=== PATIENT | female | born 1995 | race Hispanic/Latino ===

== ENCOUNTER 2020-12-27 23:17 | Emergency (ER) | payer OTHER | END 2020-12-28 01:40 | disposition home or self-care (01) | LOC: CSHERS 23:17 | DX: R07.89 Other chest pain (principal); J45.909 Unspecified asthma, uncomplicated | CPT/HCPCS: 71045; 93005 ==

== ENCOUNTER 2021-10-11 18:45 | Emergency (ER) | payer MEDICAID, OTHER ==
[2021-10-11] MEDS ORDERED: Ketorolac Tromethamine 30 MG/ML VIAL ONE (19:59)
[2021-10-11] MEDS ORDERED: Cyclobenzaprine 10 MG TAB ONE (19:59)
== END 2021-10-11 20:01 | disposition home or self-care (01) ==
LOC: CSHERS 18:45
DX: S39.012A Strain of muscle, fascia and tendon of lower back, initial encounter (principal); J45.909 Unspecified asthma, uncomplicated; X58.XXXA Exposure to other specified factors, initial encounter
CPT/HCPCS: 96372; 99283; J1885

== ENCOUNTER 2022-03-30 19:46 | Emergency (ER) | payer OTHER | END 2022-03-30 21:04 | disposition home or self-care (01) | LOC: CSHERS 19:46 | DX: G56.01 Carpal tunnel syndrome, right upper limb (principal) | CPT/HCPCS: 99283 ==

== ENCOUNTER 2023-08-03 03:44 | Emergency (ER) | payer MEDICAID, OTHER, SELFPAY ==
[2023-08-03] MEDS ORDERED: Ketorolac Tromethamine 30 MG/ML VIAL ONE (04:25)
== END 2023-08-03 04:48 | disposition home or self-care (01) ==
LOC: CSHERS 03:44
DX: S92.352A Displaced fracture of fifth metatarsal bone, left foot, initial encounter for closed fracture (principal); S92.345A Nondisplaced fracture of fourth metatarsal bone, left foot, initial encounter for closed fracture; W18.30XA Fall on same level, unspecified, initial encounter
CPT/HCPCS: 29515; 96372; J1885

== ENCOUNTER 2024-02-01 18:37 | Emergency (ER) | payer SELFPAY | END 2024-02-01 19:25 | disposition left against medical advice (07) | LOC: CSHERS 18:37 | DX: Z53.21 Procedure and treatment not carried out due to patient leaving prior to being seen by health care provider (principal) ==

== ENCOUNTER 2024-02-10 11:56 | Emergency (ER) | payer SELFPAY | END 2024-02-10 13:40 | disposition home or self-care (01) | LOC: CSHERS 11:56 | DX: S92.352A Displaced fracture of fifth metatarsal bone, left foot, initial encounter for closed fracture (principal); X50.1XXA Overexertion from prolonged static or awkward postures, initial encounter ==

== ENCOUNTER 2024-05-17 18:37 | Inpatient (IN) | payer SELFPAY ==
[2024-05-17 19:32] LABS: #Basophils 0.04 10x3/uL (0.0-0.2); #Eosinophils 0.39 10x3/uL (0.0-0.5); #Monocytes 1.01 10x3/uL (0.0-1.1); #Neutrophils 14.54 10x3/uL (1.5-8.4); %Basophils 0.2 % (0.0-2.0); %Eosinophils 2.2 % (0.0-6.0); %Lymphocytes 8.2 % (18.0-47.0); %Monocytes 5.8 % (0.0-10.0); %Neutrophils 83.2 % (40.0-75.0); Hematocrit 40.1 % (34.9-44.5); Hemoglobin 12.9 g/dL (12.0-15.5); Mean Corpuscular HGB CONC 32.2 g/dL (32.0-36.0); Mean Corpuscular Hemoglobin 26.9 pg (27.0-33.0); Mean Corpuscular Volume 83.7 fL (81.6-98.3); Mean Platelet Volume 11.1 fL (7.4-10.4); Platelet Count 313 10x3/uL (150-450); RBC Distribution Width 13.6 % (11.5-14.5); Red Blood Cell (RBC) Count 4.79 10x6/uL (3.90-5.03); White Blood Cell (WBC) Count 17.5 10x3/uL (3.5-10.5)
[2024-05-17 19:45] LABS: ALT (SGPT) 16 U/L (8-55); AST (SGOT) 15 U/L (5-34); Albumin 3.4 g/dL (3.5-5.0); Alkaline Phosphatase 132 U/L (40-110); Anion Gap 15 mmol/L (10-20); BUN (Urea Nitrogen) 12 mg/dL (7.0-18.7); Bilirubin, Total 0.4 mg/dL (0.2-1.2); Calc. Creatinine Clearance 0 mL/min (70-130); Calcium 8.9 mg/dL (7.8-10.44); Carbon Dioxide 23 mmol/L (22-29); Chloride 104 mmol/L (98-107); Estimated GFR 112; Globulin 3.8 g/dL (2.4-3.5); Glucose 151 mg/dL (70-105); Potassium 3.5 mmol/L (3.5-5.1); Protein, Total 7.2 g/dL (6.0-8.3); Sodium 138 mmol/L (136-145)
[2024-05-17] MEDS ORDERED: Ondansetron PF 4 MG/2 ML Vial ONE (19:46)
[2024-05-17] MEDS ORDERED: Morphine 4 MG/ML VIAL ONE (19:46)
[2024-05-17 19:51] LABS: Troponin I Less than 0.010 ng/mL (< 0.028)
[2024-05-17] MEDS ORDERED: Cefepime 2 GM VIAL ONE (19:57)
[2024-05-17 20:07] LABS: BHCG - Serum Negative (NEGATIVE); Pregs Control Background? CLEAR/WHITE (CLR/WHITE); Pregs Control Bar Appear? YES (CONTROL BAR)
[2024-05-17 20:09] LABS: Lipase 36 U/L (8-78)
[2024-05-17 22:22] LABS: Bilirubin Neg (Negative); Blood, Urine Negative (Negative); Clarity Clear (Clear); Glucose, Urine (Dipstick) Normal (Negative); Ketone, Urine Negative (Negative); Leukocyte Negative (Negative); Nitrite Negative (Negative); Protein, Urine (Dipstick) 15 mg/dl (Neg-Trace); Specific Gravity, Urine 1.005 (1.005-1.030)
[2024-05-17 22:52] LABS: CAUTI Indications for Culture Pelvic or flank pain; RBC/HPF 0-3 HPF (0-3)
[2024-05-17 22:53] LABS: Bacteria/HPF 1+ HPF (None Seen); Mucous/LPF 1+ LPF (<2+)
[2024-05-17 22:56] LABS: Urine Culture Reflex No No
[2024-05-17 23:46] LABS: Magnesium 1.9 mg/dL (1.6-2.6)
[2024-05-17 23:53] LABS: Troponin I Less than 0.010 ng/mL (< 0.028)
[2024-05-18] MEDS: Aspirin Chewable 81 MG TAB PO SCH (03:27)
[2024-05-18] MEDS: Ketorolac Tromethamine 30 MG (1 mL) VIAL IVP SCH (03:27)
[2024-05-18] MEDS: diphenhydrAMINE 50 MG/ML VIAL IVP SCH (03:27)
[2024-05-18] MEDS: NS 0.9% w/ 20 MEQ KCL 1,000 ML/1,000 ML BAG IV SCH ×2 (03:28→20:01)
[2024-05-18 03:36] VITALS: BMI 41.9
[2024-05-18 05:14] LABS: Anion Gap 13 mmol/L (10-20); BUN (Urea Nitrogen) 7 mg/dL (7.0-18.7); Calc. Creatinine Clearance 260 mL/min (70-130); Calcium 7.7 mg/dL (7.8-10.44); Carbon Dioxide 19 mmol/L (22-29); Chloride 113 mmol/L (98-107); Estimated GFR 124; Glucose 85 mg/dL (70-105); Potassium 3.5 mmol/L (3.5-5.1); Sodium 141 mmol/L (136-145); Vancomycin, Trough 20.5 ug/mL
[2024-05-18 05:17] LABS: #Basophils 0.02 10x3/uL (0.0-0.2); #Eosinophils 0.35 10x3/uL (0.0-0.5); #Monocytes 0.55 10x3/uL (0.0-1.1); #Neutrophils 6.03 10x3/uL (1.5-8.4); %Basophils 0.2 % (0.0-2.0); %Lymphocytes 20.2 % (18.0-47.0); %Monocytes 6.3 % (0.0-10.0); Hematocrit 37.1 % (34.9-44.5); Hemoglobin 11.5 g/dL (12.0-15.5); Mean Corpuscular Hemoglobin 26.6 pg (27.0-33.0); Mean Corpuscular Volume 85.7 fL (81.6-98.3); Mean Platelet Volume 11.1 fL (7.4-10.4); Platelet Count 241 10x3/uL (150-450); Red Blood Cell (RBC) Count 4.33 10x6/uL (3.90-5.03); White Blood Cell (WBC) Count 8.8 10x3/uL (3.5-10.5)
[2024-05-18] MEDS ORDERED: VANCOMYCIN 2 GRAM/400 ML BAG IVPB SCH (09:00)
[2024-05-18] MEDS: Acetaminophen 325 MG TAB PO PRN (09:57)
[2024-05-18] MEDS: Enoxaparin 40 MG (0.4 mL) SYRINGE SC SCH (09:58)
[2024-05-18] MEDS: Aspirin 81 mg Enteric Coated Tablet PO SCH (09:58)
[2024-05-18] MEDS: Cefepime 2 GM in Sodium Chloride 0.9% 100 ML IVPB SCH (09:58)
[2024-05-18] MEDS: VANCOMYCIN 2 GRAM/400 ML BAG 2 GM in Premix 1 BAG IVPB SCH (09:59)
[2024-05-18] MEDS: Aspirin/APAP/Caffeine Tab (Excedrin Migraine) PO PRN (16:01)
[2024-05-18] MEDS: Vancomycin 1 GM in Sodium Chloride 0.9% 250 ML 250 ML IVPB SCH (21:51)
[2024-05-19 06:23] LABS: #Basophils 0.04 10x3/uL (0.0-0.2); #Eosinophils 0.63 10x3/uL (0.0-0.5); #Monocytes 0.57 10x3/uL (0.0-1.1); %Basophils 0.5 % (0.0-2.0); %Eosinophils 7.5 % (0.0-6.0); %Lymphocytes 32.1 % (18.0-47.0); %Monocytes 6.8 % (0.0-10.0); %Neutrophils 52.7 % (40.0-75.0); Hematocrit 38.5 % (34.9-44.5); Hemoglobin 12.2 g/dL (12.0-15.5); Mean Corpuscular HGB CONC 31.7 g/dL (32.0-36.0); Mean Corpuscular Volume 85.2 fL (81.6-98.3); Mean Platelet Volume 11.1 fL (7.4-10.4); Platelet Count 303 10x3/uL (150-450); RBC Distribution Width 13.7 % (11.5-14.5); Red Blood Cell (RBC) Count 4.52 10x6/uL (3.90-5.03); White Blood Cell (WBC) Count 8.4 10x3/uL (3.5-10.5)
[2024-05-19 06:30] LABS: Anion Gap 14 mmol/L (10-20); BUN (Urea Nitrogen) 7 mg/dL (7.0-18.7); Calc. Creatinine Clearance 239 mL/min (70-130); Calcium 8.3 mg/dL (7.8-10.44); Carbon Dioxide 21 mmol/L (22-29); Chloride 110 mmol/L (98-107); Estimated GFR 122; Glucose 78 mg/dL (70-105); Sodium 141 mmol/L (136-145)
[2024-05-19 12:45] LABS: Amphetamine Not Detected (NotDetected); Barbiturates Screen Not Detected (NotDetected); Benzodiazepine Screen Not Detected (NotDetected); Cocaine Metabolite Screen Detected (NotDetected); Methadone Not Detected (NotDetected); Methamphetamine Not Detected (NotDetected); Opiate Screen Not Detected (NotDetected); Oxycodone Screen Not Detected (NotDetected); Phencyclidine (PCP) Not Detected (NotDetected); THC/Cannabinoid Screen Not Detected (NotDetected); Tricyclic Screen Not Detected (NotDetected)
[2024-05-19] MEDS ORDERED: Magnevist 469MG/ML 20 ML VIAL ONE (15:28)
[2024-05-19] MEDS: Ketorolac Tromethamine 30 MG (1 mL) VIAL IVP PRN (22:01)
[2024-05-20 06:15] LABS: #Basophils 0.07 10x3/uL (0.0-0.2); #Monocytes 0.59 10x3/uL (0.0-1.1); #Neutrophils 4.46 10x3/uL (1.5-8.4); %Basophils 0.9 % (0.0-2.0); %Eosinophils 7.4 % (0.0-6.0); %Lymphocytes 29.7 % (18.0-47.0); %Monocytes 7.2 % (0.0-10.0); %Neutrophils 54.6 % (40.0-75.0); Hematocrit 39.3 % (34.9-44.5); Hemoglobin 12.7 g/dL (12.0-15.5); Mean Corpuscular HGB CONC 32.3 g/dL (32.0-36.0); Mean Corpuscular Hemoglobin 27.1 pg (27.0-33.0); Platelet Count 321 10x3/uL (150-450); RBC Distribution Width 13.8 % (11.5-14.5); Red Blood Cell (RBC) Count 4.68 10x6/uL (3.90-5.03); White Blood Cell (WBC) Count 8.2 10x3/uL (3.5-10.5)
[2024-05-20 06:30] LABS: ALT (SGPT) 12 U/L (8-55); AST (SGOT) 10 U/L (5-34); Albumin 2.6 g/dL (3.5-5.0); Alkaline Phosphatase 94 U/L (40-110); Anion Gap 14 mmol/L (10-20); BUN (Urea Nitrogen) 10 mg/dL (7.0-18.7); Bilirubin, Direct 0.1 mg/dL (0.1-0.3); Bilirubin, Total 0.2 mg/dL (0.2-1.2); Calc. Creatinine Clearance 199 mL/min (70-130); Calcium 8.6 mg/dL (7.8-10.44); Carbon Dioxide 24 mmol/L (22-29); Chloride 106 mmol/L (98-107); Estimated GFR 106; Glucose 93 mg/dL (70-105); Potassium 4.1 mmol/L (3.5-5.1); Protein, Total 5.9 g/dL (6.0-8.3); Sodium 140 mmol/L (136-145)
[2024-05-20 06:33] LABS: Vancomycin, Random 12.7 ug/mL (See Comment)
[2024-05-20] MEDS: cefTRIAXone\\ROCEPHIN 2 GM in Sodium Chloride 0.9% 100 ML IVPB SCH (08:13)
[2024-05-21 05:54] LABS: #Basophils 0.04 10x3/uL (0.0-0.2); #Eosinophils 0.55 10x3/uL (0.0-0.5); #Monocytes 0.52 10x3/uL (0.0-1.1); #Neutrophils 6.29 10x3/uL (1.5-8.4); %Basophils 0.4 % (0.0-2.0); %Eosinophils 5.6 % (0.0-6.0); %Lymphocytes 24.2 % (18.0-47.0); %Monocytes 5.3 % (0.0-10.0); %Neutrophils 64.2 % (40.0-75.0); Hematocrit 40.1 % (34.9-44.5); Hemoglobin 12.6 g/dL (12.0-15.5); Mean Corpuscular HGB CONC 31.4 g/dL (32.0-36.0); Mean Corpuscular Hemoglobin 26.4 pg (27.0-33.0); Mean Corpuscular Volume 84.1 fL (81.6-98.3); Mean Platelet Volume 10.9 fL (7.4-10.4); Platelet Count 315 10x3/uL (150-450); RBC Distribution Width 13.7 % (11.5-14.5); Red Blood Cell (RBC) Count 4.77 10x6/uL (3.90-5.03); White Blood Cell (WBC) Count 9.8 10x3/uL (3.5-10.5)
[2024-05-21 06:07] LABS: Anion Gap 15 mmol/L (10-20); BUN (Urea Nitrogen) 11 mg/dL (7.0-18.7); Calc. Creatinine Clearance 243 mL/min (70-130); Calcium 8.5 mg/dL (7.8-10.44); Carbon Dioxide 22 mmol/L (22-29); Chloride 107 mmol/L (98-107); Estimated GFR 122; Glucose 82 mg/dL (70-105); Potassium 3.9 mmol/L (3.5-5.1); Sodium 140 mmol/L (136-145); Vancomycin, Random 11.6 ug/mL (See Comment)
[2024-05-21 06:32] LABS: HIV (1/2) Antibody/Antigen Non-Reactive (NonReactive); HIV 1/2 INDEX 0.08 S/CO (<1.00)
[2024-05-21] MEDS: Vancomycin HCl 500 MG in Sodium Chloride 0.9% 100 ML IVPB SCH (07:34)
[2024-05-21 09:03] LABS: INR-International Normal Ratio 0.9; Prothrombin Time 10.1 sec (9.5-12.1)
[2024-05-21] MEDS: Promethazine HCl 12.5 MG, Admixture Fee 1 EACH in Sodium Chloride 0.9% 50 ML IVPB SCH (10:29)
[2024-05-21 10:57] LABS: CSF, Glucose 56 mg/dl (40-70); CSF, Protein 19.6 mg/dL (15-40)
[2024-05-21 11:02] LABS: Color Of CSF Supernatant COLORLESS (Colorless); Unspun CSF Color COLORLESS (Colorless)
[2024-05-21 11:03] LABS: Tube # 1
[2024-05-21 11:35] LABS: CSF Source CSF; Clarity Clear (Clear); Tube # 2
[2024-05-21 11:37] LABS: CSF WBC/NonHematics Count-Man 8 /cu.mm (0-5)
[2024-05-21 11:38] LABS: CSF RBC Count - Manual 7 /cu.mm (None Seen)
[2024-05-21] MEDS: Vancomycin 1.5 GRAM/300 ML BAG 1.5 GM in Premix 1 BAG IVPB SCH (14:04)
[2024-05-21] MEDS: Vancomycin 1.5 GRAM/300 ML BAG ONE (21:57)
[2024-05-22 04:15] LABS: #Basophils 0.07 10x3/uL (0.0-0.2); #Eosinophils 0.57 10x3/uL (0.0-0.5); #Monocytes 0.61 10x3/uL (0.0-1.1); #Neutrophils 5.19 10x3/uL (1.5-8.4); %Basophils 0.8 % (0.0-2.0); %Eosinophils 6.1 % (0.0-6.0); %Lymphocytes 30.5 % (18.0-47.0); %Monocytes 6.5 % (0.0-10.0); %Neutrophils 55.7 % (40.0-75.0); Hematocrit 38.2 % (34.9-44.5); Hemoglobin 12.2 g/dL (12.0-15.5); Mean Corpuscular HGB CONC 31.9 g/dL (32.0-36.0); Mean Corpuscular Hemoglobin 27.4 pg (27.0-33.0); Mean Corpuscular Volume 85.8 fL (81.6-98.3); Mean Platelet Volume 10.6 fL (7.4-10.4); Platelet Count 325 10x3/uL (150-450); RBC Distribution Width 14.1 % (11.5-14.5); Red Blood Cell (RBC) Count 4.45 10x6/uL (3.90-5.03); White Blood Cell (WBC) Count 9.3 10x3/uL (3.5-10.5)
[2024-05-22 04:31] LABS: Anion Gap 13 mmol/L (10-20); BUN (Urea Nitrogen) 18 mg/dL (7.0-18.7); Calc. Creatinine Clearance 219 mL/min (70-130); Calcium 8.2 mg/dL (7.8-10.44); Carbon Dioxide 19 mmol/L (22-29); Chloride 110 mmol/L (98-107); Estimated GFR 119; Glucose 97 mg/dL (70-105); Magnesium 1.9 mg/dL (1.6-2.6); Sodium 138 mmol/L (136-145); Vancomycin, Random 25.4 ug/mL (See Comment)
[2024-05-22] MEDS: Pantoprazole DR 40 MG TAB PO SCH (09:37)
[2024-05-22] MEDS: Ketorolac Tromethamine 30 MG (1 mL) VIAL IVP SCH (09:37)
[2024-05-22] MEDS: Valproic Acid 250 mg/5 ml UD Cup PO SCH (10:06)
[2024-05-22] MEDS: Dexamethasone 4 MG in Sodium Chloride 0.9% 50 ML IVPB SCH (12:28)
[2024-05-22] MEDS: Magnesium Sulfate/D5W 1 GM in Premix 1 BAG IVPB SCH (12:29)
[2024-05-22] MEDS: Dexamethasone 4 mg/ml Vial SLOW IVP SCH (13:01)
[2024-05-22 13:02] VITALS: BP 112/69; TEMP 98.3
[2024-05-23] MEDS ORDERED: Pantoprazole DR 40 MG TAB PO SCH (09:00)
== END 2024-05-22 15:15 | disposition home or self-care (01) | DRG 918 ==
LOC: CSHERS 18:37 → CSHTELE 23:19 → OBSVTOIN 23:19 → CSHTELE 05-18 02:21
PROVIDERS: ADMIT Family Medicine; ATTEND Family Medicine
PROC: 009U3ZZ Drainage of Spinal Canal, Percutaneous Approach (ICD-10-PCS; principal; 2024-05-21)
PROC: B01BZZZ Fluoroscopy of Spinal Cord (ICD-10-PCS; 2024-05-21)
DX: T40.5X1A Poisoning by cocaine, accidental (unintentional), initial encounter (principal); R65.10 Systemic inflammatory response syndrome (SIRS) of non-infectious origin without acute organ dysfunction; Z68.41 Body mass index [BMI] 40.0-44.9, adult; F14.10 Cocaine abuse, uncomplicated; J45.909 Unspecified asthma, uncomplicated; E66.01 Morbid (severe) obesity due to excess calories; G93.0 Cerebral cysts; G43.109 Migraine with aura, not intractable, without status migrainosus; G97.1 Other reaction to spinal and lumbar puncture; D72.829 Elevated white blood cell count, unspecified; Z71.51 Drug abuse counseling and surveillance of drug abuser
CPT/HCPCS: 36415; 62270; 70450; 70553; 71275; 76376; 80048; 80053; 80076; 80202; 80306; 81001; 82945; 83605; 83690; 83735; 84145; 84157; 84484; 84703; 85025; 85610; 87040; 87070; 87205; 87389; 87428; 87529; 89051; 93005; 93010; 96361; 96365; 96366; 96368; 96372; 96374; 96375; 96376; G0378; J0692; J0696; J0780; J1100; J1200; J1650; J1885; J2272; J2405; J2550; J3370; J3475; J3480; J7030; J7050

== ENCOUNTER 2024-05-24 07:12 | Emergency (ER) | payer OTHER, SELFPAY ==
[2024-05-24] MEDS ORDERED: diphenhydrAMINE 50 MG/ML VIAL ONE (07:39)
[2024-05-24] MEDS ORDERED: Ketorolac Tromethamine 30 MG (1 mL) VIAL ONE (07:39)
[2024-05-24] MEDS ORDERED: Dexamethasone 10 MG/ML VIAL ONE (07:39)
[2024-05-24] MEDS ORDERED: Prochlorperazine 10 MG/2 ML VIAL ONE (07:39)
[2024-05-24 07:48] LABS: #Basophils 0.05 10x3/uL (0.0-0.2); #Eosinophils 0.33 10x3/uL (0.0-0.5); #Monocytes 0.71 10x3/uL (0.0-1.1); #Neutrophils 8.05 10x3/uL (1.5-8.4); %Basophils 0.4 % (0.0-2.0); %Eosinophils 2.9 % (0.0-6.0); %Lymphocytes 20.5 % (18.0-47.0); %Monocytes 6.2 % (0.0-10.0); %Neutrophils 69.7 % (40.0-75.0); Hematocrit 38.9 % (34.9-44.5); Hemoglobin 12.7 g/dL (12.0-15.5); Mean Corpuscular HGB CONC 32.6 g/dL (32.0-36.0); Mean Corpuscular Hemoglobin 27.3 pg (27.0-33.0); Mean Corpuscular Volume 83.5 fL (81.6-98.3); Mean Platelet Volume 10.5 fL (7.4-10.4); Platelet Count 328 10x3/uL (150-450); RBC Distribution Width 14.2 % (11.5-14.5); Red Blood Cell (RBC) Count 4.66 10x6/uL (3.90-5.03); White Blood Cell (WBC) Count 11.5 10x3/uL (3.5-10.5)
[2024-05-24 07:59] LABS: BHCG - Serum Negative (NEGATIVE); Pregs Control Background? CLEAR/WHITE (CLR/WHITE); Pregs Control Bar Appear? YES (CONTROL BAR)
[2024-05-24 08:07] LABS: ALT (SGPT) 25 U/L (8-55); AST (SGOT) 12 U/L (5-34); Albumin 3.3 g/dL (3.5-5.0); Alkaline Phosphatase 105 U/L (40-110); Anion Gap 16 mmol/L (10-20); BUN (Urea Nitrogen) 10 mg/dL (7.0-18.7); Bilirubin, Total 0.3 mg/dL (0.2-1.2); Calc. Creatinine Clearance 0 mL/min (70-130); Calcium 8.9 mg/dL (7.8-10.44); Carbon Dioxide 23 mmol/L (22-29); Chloride 106 mmol/L (98-107); Estimated GFR 112; Globulin 3.8 g/dL (2.4-3.5); Glucose 86 mg/dL (70-105); Potassium 3.9 mmol/L (3.5-5.1); Protein, Total 7.1 g/dL (6.0-8.3); Sodium 141 mmol/L (136-145)
== END 2024-05-24 09:00 | disposition home or self-care (01) ==
LOC: CSHERS 07:12
DX: R51.9 Headache, unspecified (principal)
CPT/HCPCS: 36416; 80053; 84703; 85025; 96374; 96375; J0780; J1100; J1200; J1885

== ENCOUNTER 2024-06-15 04:16 | Emergency (ER) | payer SELFPAY ==
[2024-06-15] MEDS ORDERED: diphenhydrAMINE 50 MG/ML VIAL ONE (04:28)
[2024-06-15] MEDS ORDERED: Metoclopramide HCl 10 MG (2 mL) VIAL ONE (04:28)
[2024-06-15] MEDS ORDERED: Ketorolac Tromethamine 30 MG (1 mL) VIAL ONE (04:28)
[2024-06-15] MEDS ORDERED: methylPREDNISolone Sod Succ/PF 125 MG/2 ML VIAL ONE (06:29)
[2024-06-15] MEDS ORDERED: Magnesium 2 GM/50 ML BAG (IN WATER) ONE (06:29)
== END 2024-06-15 09:28 | disposition home or self-care (01) ==
LOC: CSHERS 04:16
DX: G43.909 Migraine, unspecified, not intractable, without status migrainosus (principal)
CPT/HCPCS: 96374; 96375; J1200; J1885; J2765; J2919; J3475

== ENCOUNTER 2024-09-26 13:04 | Emergency (ER) | payer SELFPAY ==
[2024-09-26] MEDS ORDERED: Acetaminophen 500 MG TAB ONE (14:00)
[2024-09-26 14:11] LABS: #Basophils 0.05 10x3/uL (0.0-0.2); #Eosinophils 0.39 10x3/uL (0.0-0.5); #Monocytes 0.47 10x3/uL (0.0-1.1); #Neutrophils 6.75 10x3/uL (1.5-8.4); %Basophils 0.5 % (0.0-2.0); %Eosinophils 3.9 % (0.0-6.0); %Lymphocytes 23.9 % (18.0-47.0); %Monocytes 4.6 % (0.0-10.0); %Neutrophils 66.7 % (40.0-75.0); Hematocrit 37.2 % (34.9-44.5); Hemoglobin 11.9 g/dL (12.0-15.5); Mean Corpuscular Hemoglobin 25.9 pg (27.0-33.0); Mean Corpuscular Volume 80.9 fL (81.6-98.3); Mean Platelet Volume 11.1 fL (7.4-10.4); Platelet Count 289 10x3/uL (150-450); RBC Distribution Width 14.2 % (11.5-14.5); White Blood Cell (WBC) Count 10.12 10x3/uL (3.5-10.5)
[2024-09-26 14:12] LABS: Bilirubin Neg (Negative); Blood, Urine Negative (Negative); Clarity Clear (Clear); Glucose, Urine (Dipstick) Normal (Negative); Ketone, Urine Negative (Negative); Leukocyte 100 (Negative); Nitrite Negative (Negative); Protein, Urine (Dipstick) Negative (Neg-Trace); Specific Gravity, Urine 1.005 (1.005-1.030); Urobilinogen Normal mg/dL (Less than 2)
[2024-09-26 14:28] LABS: ALT (SGPT) 10 U/L (Less than 34); AST (SGOT) 12 U/L (11-34); Albumin 3.3 g/dL (3.1-4.5); Alkaline Phosphatase 97 U/L (40-110); Anion Gap 12 mmol/L (10-20); BUN (Urea Nitrogen) 5 mg/dL (7.0-18.7); Bilirubin, Total 0.2 mg/dL (0.3-1.2); Calc. Creatinine Clearance 0 mL/min (70-130); Calcium 8.7 mg/dL (7.8-10.44); Carbon Dioxide 21 mmol/L (22-29); Chloride 106 mmol/L (98-107); Estimated GFR 127; Globulin 4.1 g/dL (2.4-3.5); Glucose 88 mg/dL (70-105); Lipase 37 U/L (8-78); Potassium 3.8 mmol/L (3.5-5.1); Protein, Total 7.4 g/dL (6.0-8.3); Sodium 135 mmol/L (136-145)
[2024-09-26 14:34] LABS: Bacteria/HPF None Seen HPF (None Seen); CAUTI Indications for Culture Pelvic or flank pain; RBC/HPF None Seen HPF (0-3); Squamous Epithelial 0-3 HPF (0-3); Urine Culture Reflex No No; WBC/HPF 0-3 HPF (0-3)
== END 2024-09-26 15:46 | disposition home or self-care (01) ==
LOC: EEVIPCON 13:04 → CSHERS 13:04
DX: O20.9 Hemorrhage in early pregnancy, unspecified (principal); Z3A.10 10 weeks gestation of pregnancy
CPT/HCPCS: 36415; 76856; 80053; 81001; 83690; 83735; 84702; 85025; 86850; 86900; 86901

== ENCOUNTER 2025-04-11 14:04 | Emergency (ER) | payer SELFPAY ==
[2025-04-11 15:06] LABS: #Basophils 0.04 10x3/uL (0.0-0.2); #Eosinophils 0.26 10x3/uL (0.0-0.5); #Monocytes 0.47 10x3/uL (0.0-1.1); #Neutrophils 5.52 10x3/uL (1.5-8.4); %Basophils 0.5 % (0.0-2.0); %Eosinophils 3.3 % (0.0-6.0); %Lymphocytes 19.6 % (18.0-47.0); %Monocytes 6.0 % (0.0-10.0); %Neutrophils 70.3 % (40.0-75.0); Hematocrit 36.9 % (34.9-44.5); Hemoglobin 11.1 g/dL (12.0-15.5); Mean Corpuscular Hemoglobin 23.4 pg (27.0-33.0); Mean Corpuscular Volume 77.8 fL (81.6-98.3); Platelet Count 284 10x3/uL (150-450); Red Blood Cell (RBC) Count 4.74 10x6/uL (3.90-5.03); White Blood Cell (WBC) Count 7.85 10x3/uL (3.5-10.5)
[2025-04-11 15:42] LABS: ALT (SGPT) 16 U/L (Less than 34); AST (SGOT) 27 U/L (11-34); Albumin 3.4 g/dL (3.1-4.5); Alkaline Phosphatase 108 U/L (40-110); Anion Gap 12 mmol/L (10-20); BUN (Urea Nitrogen) 9 mg/dL (7.0-18.7); Bilirubin, Total 0.2 mg/dL (0.3-1.2); Calc. Creatinine Clearance 0 mL/min (70-130); Calcium 8.7 mg/dL (7.8-10.44); Carbon Dioxide 21 mmol/L (22-29); Chloride 108 mmol/L (98-107); Globulin 3.6 g/dL (2.4-3.5); Glucose 112 mg/dL (70-105); Potassium 4.0 mmol/L (3.5-5.1); Sodium 137 mmol/L (136-145)
== END 2025-04-11 18:00 | disposition home or self-care (01) ==
LOC: CSHERS 14:04
DX: O99.891 Other specified diseases and conditions complicating pregnancy (principal); R10.30 Lower abdominal pain, unspecified; M25.531 Pain in right wrist; O21.9 Vomiting of pregnancy, unspecified; O99.331 Smoking (tobacco) complicating pregnancy, first trimester; F17.290 Nicotine dependence, other tobacco product, uncomplicated; Z55.6 Problems related to health literacy; Z3A.00 Weeks of gestation of pregnancy not specified
CPT/HCPCS: 36415; 76856; 80053; 84702; 85025

== ENCOUNTER 2025-04-22 16:11 | Emergency (ER) | payer SELFPAY ==
[2025-04-22 17:58] LABS: Glucose, Urine (Dipstick) Normal (Negative); Leukocyte 500 (Negative); Protein, Urine (Dipstick) 15 mg/dl (Neg-Trace); Specific Gravity, Urine 1.010 (1.005-1.030)
[2025-04-22 18:25] LABS: CAUTI Indications for Culture Pregnancy; RBC/HPF None Seen HPF (0-3)
[2025-04-22 18:26] LABS: Bacteria/HPF 1+ HPF (None Seen); Urine Culture Reflex Yes Yes
[2025-04-22 19:01] LABS: #Basophils 0.05 10x3/uL (0.0-0.2); #Eosinophils 0.26 10x3/uL (0.0-0.5); #Monocytes 0.54 10x3/uL (0.0-1.1); #Neutrophils 7.33 10x3/uL (1.5-8.4); %Basophils 0.5 % (0.0-2.0); %Eosinophils 2.5 % (0.0-6.0); %Lymphocytes 19.8 % (18.0-47.0); %Monocytes 5.3 % (0.0-10.0); %Neutrophils 71.7 % (40.0-75.0); Hematocrit 37.5 % (34.9-44.5); Hemoglobin 11.7 g/dL (12.0-15.5); Mean Corpuscular Hemoglobin 23.7 pg (27.0-33.0); Mean Corpuscular Volume 76.1 fL (81.6-98.3); Platelet Count 318 10x3/uL (150-450); Red Blood Cell (RBC) Count 4.93 10x6/uL (3.90-5.03); White Blood Cell (WBC) Count 10.23 10x3/uL (3.5-10.5)
[2025-04-22 19:17] LABS: ALT (SGPT) 10 U/L (Less than 34); AST (SGOT) 25 U/L (11-34); Albumin 3.7 g/dL (3.1-4.5); Alkaline Phosphatase 108 U/L (40-110); Anion Gap 11 mmol/L (10-20); BUN (Urea Nitrogen) 9 mg/dL (7.0-18.7); Bilirubin, Total 0.2 mg/dL (0.3-1.2); Calc. Creatinine Clearance 0 mL/min (70-130); Calcium 9.5 mg/dL (7.8-10.44); Carbon Dioxide 25 mmol/L (22-29); Chloride 107 mmol/L (98-107); Globulin 3.9 g/dL (2.4-3.5); Glucose 83 mg/dL (70-105); Potassium 4.3 mmol/L (3.5-5.1); Sodium 139 mmol/L (136-145)
[2025-04-22] MEDS ORDERED: metroNIDAZOLE 500 MG TAB ONE (19:29)
[2025-04-22] MEDS ORDERED: Acetaminophen 500 MG TAB ONE (19:29)
[2025-04-23 01:00] LABS: Chlamydia by PCR, Vaginal Swab Not Detected (NotDetected); GC by PCR, Vaginal Swab Not Detected (NotDetected)
== END 2025-04-22 20:11 | disposition home or self-care (01) ==
LOC: CSHERS 16:11
DX: O20.0 Threatened abortion (principal); O20.8 Other hemorrhage in early pregnancy; O23.591 Infection of other part of genital tract in pregnancy, first trimester; B97.89 Other viral agents as the cause of diseases classified elsewhere; O23.91 Unspecified genitourinary tract infection in pregnancy, first trimester; R82.71 Bacteriuria; O99.331 Smoking (tobacco) complicating pregnancy, first trimester; F17.200 Nicotine dependence, unspecified, uncomplicated; Z3A.08 8 weeks gestation of pregnancy
CPT/HCPCS: 36415; 76801; 80053; 81001; 84702; 85025; 86900; 86901; 87086; 87480; 87491; 87510; 87591; 87660; 99284

== ENCOUNTER 2025-05-17 22:02 | Emergency (ER) | payer MEDICAID, OTHER ==
[2025-05-18 01:18] LABS: ALT (SGPT) 9 U/L (Less than 34); AST (SGOT) 23 U/L (11-34); Albumin 3.3 g/dL (3.1-4.5); Alkaline Phosphatase 99 U/L (40-110); Anion Gap 16 mmol/L (10-20); BUN (Urea Nitrogen) 6 mg/dL (7.0-18.7); Bilirubin, Total 0.2 mg/dL (0.3-1.2); Calc. Creatinine Clearance 0 mL/min (70-130); Calcium 8.7 mg/dL (7.8-10.44); Carbon Dioxide 17 mmol/L (22-29); Chloride 107 mmol/L (98-107); Globulin 3.7 g/dL (2.4-3.5); Glucose 88 mg/dL (70-105); Lipase 33 U/L (8-78); Potassium 3.1 mmol/L (3.5-5.1); Sodium 137 mmol/L (136-145)
[2025-05-18 01:39] LABS: Hematocrit 34.8 % (34.9-44.5); Hemoglobin 11.2 g/dL (12.0-15.5); Mean Corpuscular Hemoglobin 24.0 pg (27.0-33.0); Mean Corpuscular Volume 74.7 fL (81.6-98.3); Platelet Count 273 10x3/uL (150-450); Red Blood Cell (RBC) Count 4.66 10x6/uL (3.90-5.03); White Blood Cell (WBC) Count 13.08 10x3/uL (3.5-10.5)
[2025-05-18 01:46] LABS: BHCG - Serum POSITIVE (NEGATIVE); Pregs Control Background? CLEAR/WHITE (CLR/WHITE); Pregs Control Bar Appear? YES (CONTROL BAR)
[2025-05-18 02:08] LABS: Glucose, Urine (Dipstick) Normal (Negative); Leukocyte 500 (Negative); Protein, Urine (Dipstick) 30 mg/dl (Neg-Trace); Specific Gravity, Urine 1.030 (1.005-1.030)
[2025-05-18 02:10] LABS: Anisocytosis SLIGHT = 6-15 cells (100X) (0-5/hpf); Ovalocytes SLIGHT = 2-5 cells (100X) (0-1/hpf)
[2025-05-18 02:11] LABS: #Basophils 0.05 10x3/uL (0.0-0.2); #Eosinophils 0.17 10x3/uL (0.0-0.5); #Monocytes 0.79 10x3/uL (0.0-1.1); #Neutrophils 9.33 10x3/uL (1.5-8.4); %Basophils 0.4 % (0.0-2.0); %Eosinophils 1.3 % (0.0-6.0); %Lymphocytes 20.6 % (18.0-47.0); %Monocytes 6.0 % (0.0-10.0); %Neutrophils 71.3 % (40.0-75.0); Platelet Adequacy Comment Appears Adequate
[2025-05-18 02:21] LABS: Bacteria/HPF 1+ HPF (None Seen); CAUTI Indications for Culture Pregnancy; RBC/HPF 0-3 HPF (0-3); WBC/HPF 0-3 HPF (0-3)
[2025-05-18 02:24] LABS: Urine Culture Reflex Yes Yes
[2025-05-18] MEDS ORDERED: Acetaminophen 500 MG TAB ONE (02:24)
== END 2025-05-18 03:10 | disposition home or self-care (01) ==
LOC: EEVIPCON 22:02 → CSHERS 22:02
DX: O23.41 Unspecified infection of urinary tract in pregnancy, first trimester (principal); N39.0 Urinary tract infection, site not specified; O99.331 Smoking (tobacco) complicating pregnancy, first trimester; F17.200 Nicotine dependence, unspecified, uncomplicated; O99.411 Diseases of the circulatory system complicating pregnancy, first trimester; I25.2 Old myocardial infarction; Z86.73 Personal history of transient ischemic attack (TIA), and cerebral infarction without residual deficits; Z3A.11 11 weeks gestation of pregnancy
CPT/HCPCS: 76801; 76856; 80053; 81001; 83690; 84703; 85025; 87086; Q0162

== ENCOUNTER 2025-08-01 16:24 | Emergency (ER) | payer MEDICAID, OTHER ==
[2025-08-01 17:31] LABS: Glucose, Urine (Dipstick) Normal (Negative); Leukocyte 25 (Negative); Pregnancy Test - Urine (BHCG) POSITIVE (Negative); Pregu Control Background? CLEAR/WHITE (CLR/WHITE); Pregu Control Bar Appear? YES (CONTROL BAR); Protein, Urine (Dipstick) Negative (Neg-Trace); Specific Gravity, Urine 1.020 (1.005-1.030)
[2025-08-01 17:46] LABS: CAUTI Indications for Culture Pelvic or flank pain; RBC/HPF None Seen HPF (0-3); WBC/HPF 0-3 HPF (0-3)
[2025-08-01 17:47] LABS: Bacteria/HPF 2+ HPF (None Seen); Mucous/LPF 2+ LPF (<2+); Urine Culture Reflex No No
[2025-08-01 18:25] LABS: ALT (SGPT) 8 U/L (Less than 34); AST (SGOT) 10 U/L (11-34); Albumin 2.7 g/dL (3.1-4.5); Alkaline Phosphatase 128 U/L (40-110); Anion Gap 13 mmol/L (10-20); BUN (Urea Nitrogen) 5 mg/dL (7.0-18.7); Bilirubin, Total 0.1 mg/dL (0.3-1.2); Calc. Creatinine Clearance 0 mL/min (70-130); Calcium 8.5 mg/dL (7.8-10.44); Carbon Dioxide 20 mmol/L (22-29); Chloride 106 mmol/L (98-107); Globulin 3.8 g/dL (2.4-3.5); Glucose 129 mg/dL (70-105); Potassium 3.8 mmol/L (3.5-5.1); Sodium 135 mmol/L (136-145)
[2025-08-01 18:29] LABS: Hematocrit 32.9 % (34.9-44.5); Hemoglobin 10.3 g/dL (12.0-15.5); Mean Corpuscular Hemoglobin 23.3 pg (27.0-33.0); Mean Corpuscular Volume 74.4 fL (81.6-98.3); Platelet Count 263 10x3/uL (150-450); Red Blood Cell (RBC) Count 4.42 10x6/uL (3.90-5.03); Troponin I Less than 0.010 ng/mL (< 0.028); White Blood Cell (WBC) Count 12.20 10x3/uL (3.5-10.5)
[2025-08-01 19:32] LABS: #Basophils 0.04 10x3/uL (0.0-0.2); #Eosinophils 0.27 10x3/uL (0.0-0.5); #Monocytes 0.59 10x3/uL (0.0-1.1); #Neutrophils 9.17 10x3/uL (1.5-8.4); %Basophils 0.3 % (0.0-2.0); %Eosinophils 2.2 % (0.0-6.0); %Lymphocytes 16.9 % (18.0-47.0); %Monocytes 4.8 % (0.0-10.0); %Neutrophils 75.2 % (40.0-75.0); Anisocytosis SLIGHT = 6-15 cells (100X) (0-5/hpf); MDiff Complete? YES; Macrocytosis SLIGHT = 6-15 cells (100X) (0-5/hpf); Microcytosis SLIGHT = 6-15 cells (100X) (0-5/hpf); Ovalocytes SLIGHT = 2-5 cells (100X) (0-1/hpf); Platelet Adequacy Comment Appears Adequate; Polychromasia SLIGHT = 2-3 cells (100X) (0-2/hpf)
== END 2025-08-01 19:33 | disposition home or self-care (01) ==
LOC: CSHERS 16:24
DX: O99.512 Diseases of the respiratory system complicating pregnancy, second trimester (principal); J10.1 Influenza due to other identified influenza virus with other respiratory manifestations; O99.332 Smoking (tobacco) complicating pregnancy, second trimester; F17.210 Nicotine dependence, cigarettes, uncomplicated; O24.419 Gestational diabetes mellitus in pregnancy, unspecified control; I25.2 Old myocardial infarction; Z86.73 Personal history of transient ischemic attack (TIA), and cerebral infarction without residual deficits; Z3A.22 22 weeks gestation of pregnancy
CPT/HCPCS: 71045; 76815; 80053; 81001; 81025; 84484; 85025; 85379; 87428; 93005